=== PATIENT | female | born 1990 | race Caucasian/White ===

== ENCOUNTER 2017-05-08 12:09 | Emergency (ER) | payer SELFPAY ==
[~2017-05-08] VITALS: Ht 162.6 cm; Wt 119.5 kg
[~2017-05-08 12:09] MED LIST: IBUP-1542 PO
[2017-05-08 12:16] VITALS: Ht 162.6 cm; Wt 119.5 kg
[2017-05-08] MEDS ORDERED: ONDANSETRON (ODT) 4 MG TAB ODT STA (13:27)
--- NOTE | 2017-05-08 13:44 | ERD ---
ER Documentation Chief Complaint Date/Time DATE: 05/08/17 TIME: 13:40 Chief Complaint Pt with Dizziness and nausea X 1 hours prior to arrival. HPI 27-year-old female otherwise healthy presents with dizziness, lightheadedness with nausea started about an hour prior to arrival. She states that occurred after she looked down to pick something up, and it occurs also when she looks down towards the ground as well. She describes as a lightheaded sensation, slight vertiginous sensation as well with a slight headache. She reports nausea but no vomiting. No blurry vision, paresthesias. ROS All systems reviewed and are negative except as per history of present illness. Medications Home Meds Active Scripts Ondansetron (Ondansetron Odt) 4 Mg Tab.rapdis, 4 MG PO Q6H Y for NAUSEA AND/OR VOMITING, #10 TAB Prov:DEWEY SMALLS PA-C 05/08/17 Ibuprofen* (Motrin*) 600 Mg Tab, 600 MG PO Q8 for 10 Days, #30 TAB 0 Refills Prov:TRACY AMADO PA-C 05/21/16 Allergies Allergies: Coded Allergies: No Known Allergy (Unverified , 05/21/16) PMhx/Soc Medical and Surgical Hx: pt denies Medical Hx, pt denies Surgical Hx Hx Alcohol Use: Yes Hx Substance Use: No Hx Tobacco Use: No Physical Exam Vitals Vital Signs Date Time Temp Pulse Resp B/P Pulse Ox O2 Delivery O2 Flow Rate FiO2 05/08/17 12:39 145/89 05/08/17 12:16 98.1 77 20 190/115 96 Physical Exam General: Well-developed, well-nourished. The patient appears in no acute distress. HEENT: Head is normocephalic, atraumatic. No scleral icterus. Pupils are equal , round, and reactive. Oral mucous membranes are moist. No pharyngeal erythema. Neck: Supple. Nontender. Lungs: Clear to auscultation. Normal air movement. Heart: Regular rate and rhythm. S1 and S2 are normal. No murmurs, gallops, or rubs. Abdomen: Soft, nontender, nondistended. Bowel sounds are normoactive. Extremities: No clubbing or cyanosis. Normal pulses. Moving extremities x 4. No weakness. Neuro: M/S: Alert and oriented Face: EOMI, CN II-XII grossly intact Motor: Normal strength throughout Sensation: Normal sensation throughout Speech: Normal Cerebel: Normal coordination Normal gait Normal finger to nose DTR: 2+ and symmetric upper/lower extremities Skin: Normal turgor. No rash or lesions. Results 24 hrs Laboratory Tests Test 05/08/17 13:50 05/08/17 14:35 Bedside Glucose 94mg/dL Urine Color COLORLESS Urine Clarity CLEAR Urine pH 6.0 Urine Specific [place] 1.003 Urine Ketones NEGATIVEmg/dL Urine Nitrite NEGATIVEmg/dL Urine Bilirubin NEGATIVEmg/dL Urine Urobilinogen NEGATIVEmg/dL Urine Leukocyte Esterase TRACELeu/ul Urine Microscopic RBC 1/HPF Urine Microscopic WBC 1/HPF Urine Bacteria FEW/HPF Urine Hemoglobin NEGATIVEmg/dL Urine Glucose NEGATIVEmg/dL Urine Total Protein NEGATIVEmg/dl Urine Test NEGATIVE Current Medications Medications (Trade) Dose Ordered Sig/Julian Route PRN Reason Start Time Stop Time Status Last Admin Dose Admin Ondansetron HCl (Zofran Odt) 4 mg ONCE STAT ODT 05/08/17 13:27 05/08/17 13:28 DC 05/08/17 13:48 Procedures/MDM 12-lead EKG(interpreted by supervising physician): Dr. Camacho Rate/Rhythm: Normal Sinus Rhythm, rate of 71 QRS, ST, T-waves: No changes consistent w/ acute ischemia, no intervals, no dysrhythmias, no ectopy Impression: No evidence of ischemia or arrhythmia Medical decision makin-year-old female presents with acute onset of dizziness, she describes as vertiginous with lightheadedness and appears to be dependent on her position. She states that occurred is reproducible when she looks down. Headache does not appear to be severe, she states that she feels more stressed about her symptoms and describes the headache is more of a tension headache. I did offer see risks of radiation likely would outweigh the benefits given her normal neurologic examination and presentation. Patient has a normal EKG, glucose was obtained and she was also given Zofran for her nausea symptoms. Urine analysis, Negative for infection, negative for .I doubt intracranial hemorrhage, mass-effect, dissection, acute coronary syndrome , pulmonary embolus, dehydration, anemia. Patient at this time received Zofran , feeling much better. She had elevated blood pressure reading that was initially noted at triage which was immediately retaken and had improved. To follow-up with her primary care doctor for reevaluation follow-up next week. Patient's blood pressure was elevated (>120/80) but appears stable without evidence of hypertension emergency or urgency. The patient was counseled about the risks of hypertension and urged to pursue outpatient monitoring and therapy within a week with their primary care physician. Departure Diagnosis: Primary Impression: Dizziness Condition: Good DEWEY SMALLS PA-C May 08, 2017 13:44
[2017-05-08 14:51] LABS: ADD UMIC YES; UR ASCORBIC ACID NEGATIVE (NEGATIVE); UR BACTERIA FEW /HPF (NONE SEEN); UR BILIRUBIN (Dip) NEGATIVE (NEGATIVE); UR BLOOD (Dip) NEGATIVE (NEGATIVE); UR CLARITY CLEAR (CLEAR); UR COLOR COLORLESS (YELLOW); UR GLUCOSE (Dip) NEGATIVE (NEGATIVE); UR KETONES (Dip) NEGATIVE (NEGATIVE); UR LEUKOCYTE ESTERASE (Dip) TRACE Leu/ul (NEGATIVE); UR NITRITE (Dip) NEGATIVE (NEGATIVE); UR RBC 1 /HPF (0-5); UR SPECIFIC GRAVITY (Dip) 1.003 (1.003-1.030); UR TOTAL PROTEIN (Dip) NEGATIVE (NEGATIVE); UR UROBILINOGEN (Dip) NEGATIVE (NEGATIVE)
[2017-05-08] MEDS ORDERED: ONDA4TAB14 PO (15:06)
[2017-05-08 15:41] VITALS: BP 143/88; PULSE 68; RESP 18; TEMP 98.1
== END 2017-05-08 15:42 | disposition home or self-care (01) ==
LOC: FTE 12:09
DX: R42 Dizziness and giddiness (principal); R11.0 Nausea
CPT/HCPCS: 81001; 82962; 84703; 93005; 99284

== ENCOUNTER 2018-07-29 23:13 | Emergency (ER) | END 2018-07-30 01:07 | disposition home or self-care (01) ==

== ENCOUNTER 2018-09-07 01:49 | Emergency (ER) | payer OTHER ==
[~2018-09-07] VITALS: Wt 117.1 kg
[~2018-09-07 01:49] MED LIST changes: +ONDA4TAB14 PO
[2018-09-07] MEDS ORDERED: HYDR-3029 PO (04:15)
[2018-09-07] MEDS ORDERED: NAPR-985 PO (04:15)
[2018-09-07 04:27] VITALS: BP 130/83; PULSE 79; RESP 18
--- NOTE | 2018-09-07 04:28 | ERD ---
ER Documentation Chief Complaint Chief Complaint CP X'S 1 HR HPI 28-year-old female presenting with chest pain times 1 hour. Patient states that at night her chest causes her pressure and pain and this evening she felt dizzy with a hot spell came over her. She felt short of breath but then drink water and her symptoms improved. Since waiting in the emergency room and in my evaluation patient states her symptoms have improved. Patient has a history of anxiety and does feel that she is under stress. She has a history of hype rtension and is not currently taking medications. She is planning to see her primary doctor in the next few weeks. NKDA. Surgical history is breast cyst biopsy. Social history denies ROS All systems reviewed and are negative except as per history of present illness. Medications Home Meds Active Scripts Hydroxyzine Hcl* (Hydroxyzine Hcl*) 10 Mg Tablet, 10 MG PO Q6H PRN for ANXIETY, #30 TAB Prov:MEERA CHENG PA-C 09/07/18 Naproxen* (Naprosyn*) 500 Mg Tablet, 500 MG PO BID PRN for PAIN AND/OR INFLAMMATION, #30 TAB Prov:MEERA CHENG PA-C 09/07/18 Ibuprofen* (Motrin*) 600 Mg Tab, 600 MG PO Q6H PRN for PAIN AND OR ELEVATED TEMP, #30 TAB Prov:LISANDRO PIÑA MD 07/30/18 Ondansetron (Ondansetron Odt) 4 Mg Tab.rapdis, 4 MG PO Q6H PRN for NAUSEA AND/OR VOMITING, #10 TAB Prov:DEWEY SMALLS PA-C 05/08/17 Ibuprofen* (Motrin*) 600 Mg Tab, 600 MG PO Q8 for 10 Days, #30 TAB 0 Refills Prov:TRACY AMADO PA-C 05/21/16 Allergies Allergies: Coded Allergies: No Known Allergy (Unverified , 07/29/18) PMhx/Soc Medical and Surgical Hx: pt denies Medical Hx History of Surgery: Yes (2 csyts removed from breast) Anesthesia Reaction: No Hx Alcohol Use: No Hx Substance Use: No Hx Tobacco Use: No Smoking Status: Never smoker FmHx Family History: No diabetes, No coronary disease, No other Physical Exam Vitals Vital Signs Date Temp Pulse Resp B/P (MAP) Pulse Ox O2 O2 Flow FiO2 Time Delivery Rate 09/07/18 97.5 104 20 183/102 100 01:58 (129) Physical Exam GENERAL: The patient is well-appearing, well-nourished, in no acute distress HEENT: Atraumatic. Conjunctivae are pink. Pupils equal, round, and reactive to light. There is no scleral icterus. Tympanic membranes clear bilaterally. Oropharynx clear. No nystagmus or photophobia. NECK: C-spine is soft and supple. There is no meningismus. There is no cervical lymphadenopathy. CHEST: Clear to auscultation bilaterally. There are no rales, wheezes or rhonchi. HEART: Regular rate and rhythm. No murmurs, clicks, rubs or gallops. No S3 or S4. Result Diagram: 09/07/1831709/07/18317 Results 24 hrs Laboratory Tests Test 09/07/18 03:18 09/07/18 03:29 White Blood Count 10.1 10^3/ul Red Blood Count 4.71 10^6/ul Hemoglobin 12.2 g/dl Hematocrit 38.0 % Mean Corpuscular Volume 80.7 fl Mean Corpuscular Hemoglobin 25.9 pg Mean Corpuscular Hemoglobin Concent 32.1 g/dl Red Cell Distribution Width 13.6 % Platelet Count 363 10^3/UL Mean Platelet Volume 10.5 fl Immature Granulocytes % 0.400 % Neutrophils % 67.2 % Lymphocytes % 25.5 % Monocytes % 5.4 % Eosinophils % 1.0 % Basophils % 0.5 % Nucleated Red Blood Cells % 0.0 /100WBC Immature Granulocytes # 0.040 10^3/ul Neutrophils # 6.8 10^3/ul Lymphocytes # 2.6 10^3/ul Monocytes # 0.5 10^3/ul Eosinophils # 0.1 10^3/ul Basophils # 0.1 10^3/ul Nucleated Red Blood Cells # 0.0 10^3/ul Urine Color STRAW Urine Clarity CLEAR Urine pH 6.0 Urine Specific [place] 1.009 Urine Ketones NEGATIVE mg/dL Urine Nitrite NEGATIVE mg/dL Urine Bilirubin NEGATIVE mg/dL Urine Urobilinogen NEGATIVE mg/dL Urine Leukocyte Esterase NEGATIVE Sean/ul Urine Microscopic RBC 0 /HPF Urine Microscopic WBC 1 /HPF Urine Bacteria FEW /HPF Urine Hemoglobin 1+ mg/dL Urine Glucose NEGATIVE mg/dL Urine Total Protein NEGATIVE mg/dl Sodium Level 142 mmol/L Potassium Level 4.1 mmol/L Chloride Level 103 mmol/L Carbon Dioxide Level 27 mmol/L Anion Gap 12 Blood Urea Nitrogen 15 mg/dl Creatinine 0.70 mg/dl Est Glomerular Filtrat Rate mL/min > 60 mL/min Glucose Level 104 mg/dl Calcium Level 9.2 mg/dl Total Bilirubin 0.0 mg/dl Direct Bilirubin 0.00 mg/dl Indirect Bilirubin 0.0 mg/dl Aspartate Amino Transf (AST/SGOT) 27 IU/L Alanine Aminotransferase (ALT/SGPT) 31 IU/L Alkaline Phosphatase 101 IU/L Troponin I < 0.012 ng/ml Total Protein 8.4 g/dl Albumin 4.4 g/dl Globulin 4.00 g/dl Albumin/Globulin Ratio 1.10 POC Beta HCG, Qualitative NEGATIVE Procedures/MDM DIAGNOSTIC IMAGING REPORT Patient: JONELLE PATRICIO : 1990 Age: 28 Sex: F MR #: [id number] DOS: 09/07/18 0312 Ordering MD: MI CHENG PA-C Location: [facility] Room/Bed: PROCEDURE: XR Chest. CLINICAL INDICATION: Chest pain TECHNIQUE: Portable single view of the chest COMPARISON: DR BUTT 07/29/2018 FINDINGS: The lungs are stable appearance without new focal infiltrate. No CHF including n o pleural effusion has developed. The heart size and mediastinal contours are stable within normal limits. Osseous structures are intact. IMPRESSION: No significant change. No new acute process seen within the chest. EKG: Rate/Rhythm: 105 bpm. Sinus tachycardia. No STEMI. QRS, ST, T-waves: No changes consistent w/ acute ischemia Impression: No evidence of ischemia or arrhythmia MDM: 28-year-old female presenting with chest wall pain. I have low suspicion for cardiac emergency. Patient's EKG and blood work are stable. I have considered pulmonary abnormalities including but not limited to pneumothorax versus PE. Patient does not have pleuritic chest pain and no dyspnea on ex ertion. Patient is discharged with supportive medications and recommended to follow-up with her primary care. Patient was told symptoms change or worsen to immediately return to the ER. All questions answered at discharge Departure Diagnosis: Primary Impression: Chest pain Condition: Stable Patient Instructions: Chest Pain, Uncertain Cause Referrals: [facility] YOU HAVE RECEIVED A MEDICAL SCREENING EXAM AND THE RESULTS INDICATE THAT YOU DO NOT HAVE A CONDITION THAT REQUIRES URGENT TREATMENT IN THE EMERGENCY DEPARTMENT. FURTHER EVALUATION AND TREATMENT OF YOUR CONDITION CAN WAIT UNTIL YOU ARE SEEN IN YOUR DOCTORS OFFICE WITHIN THE NEXT 1-2 DAYS. IT IS YOUR RESPONSIBILITY TO MAKE AN APPOINTMENT FOR FOLOW-UP CARE. IF YOU HAVE A PRIMARY DOCTOR --you should call your primary doctor and schedule an appointment IF YOU DO NOT HAVE A PRIMARY DOCTOR YOU CAN CALL OUR PHYSICIAN REFERRAL HOTLINE AT IF YOU CAN NOT AFFORD TO SEE A PHYSICIAN YOU CAN CHOSE FROM THE FOLLOWING [facility] [address] [facility]. [facility] [address] [facility] [address] [facility] [facility] [address] [facility] [facility] [address] [facility]. [facility] [address] Additional Instructions: FOLLOW UP WITH YOUR PRIMARY CARE PHYSICIAN TOMORROW.Return to this facility if you are not improving as expected. MEERA CHENG PA-C Sep 07, 2018 04:28
== END 2018-09-07 04:29 | disposition home or self-care (01) ==
LOC: FTE 01:49
DX: R07.9 Chest pain, unspecified (principal)
CPT/HCPCS: 36415; 71045; 80053; 81001; 81025; 84484; 85025; 93005

== ENCOUNTER 2018-12-11 10:01 | Emergency (ER) | payer OTHER ==
[~2018-12-11] VITALS: Ht 162.6 cm; Wt 115.3 kg
[~2018-12-11 10:01] MED LIST changes: +HYDR-3029 PO; +NAPR-985 PO
[2018-12-11 10:05] VITALS: BP 147/88; PULSE 107; RESP 20; Ht 162.6 cm; Wt 115.3 kg
[2018-12-11] MEDS ORDERED: AMOX500C2 PO (10:49)
[2018-12-11] MEDS ORDERED: IBUP-1542 PO (10:49)
--- NOTE | 2018-12-11 11:18 | ERD ---
ER Documentation Chief Complaint Chief Complaint Pt with ST and congestion since yesterday, difficulty swallowing HPI 28-year-old female patient with no significant past medical history presents ED complaining of sore throat, congestion started yesterday. She reports that it is painful for her to swallow however she still able to swallow liquids and solids without any difficulty. Denies any chest pain, shortness of breath, nausea, vomiting, diarrhea, neck stiffness. Patient is eating appropriately, tolerating oral intake, has normal bowel movements and good urine output. Denies any wheezing, abdominal pain, chest pain. ROS All systems reviewed and are negative except as per history of present illness. Medications Home Meds Active Scripts Amoxicillin* (Amoxicillin*) 500 Mg Cap, 500 MG PO BID for 10 Days, CAP Prov:RIC OLVERA PA-C 12/11/18 Ibuprofen* (Motrin*) 600 Mg Tab, 600 MG PO Q6, #30 TAB Prov:RIC OLVERA PA-C 12/11/18 Hydroxyzine Hcl* (Hydroxyzine Hcl*) 10 Mg Tablet, 10 MG PO Q6H PRN for ANXIETY, #30 TAB Prov:MEERA CHENG PA-C 09/07/18 Naproxen* (Naprosyn*) 500 Mg Tablet, 500 MG PO BID PRN for PAIN AND/OR INFLAMMATION, #30 TAB Prov:MEERA CHENG PA-C 09/07/18 Ibuprofen* (Motrin*) 600 Mg Tab, 600 MG PO Q6H PRN for PAIN AND OR ELEVATED TEMP, #30 TAB Prov:LISANDRO PIÑA MD 07/30/18 Ondansetron (Ondansetron Odt) 4 Mg Tab.rapdis, 4 MG PO Q6H PRN for NAUSEA AND/OR VOMITING, #10 TAB Prov:DEWEY SMALLS PA-C 05/08/17 Ibuprofen* (Motrin*) 600 Mg Tab, 600 MG PO Q8 for 10 Days, #30 TAB 0 Refills Prov:TRACY AMADO PA-C 05/21/16 Allergies Allergies: Coded Allergies: No Known Allergy (Unverified , 07/29/18) PMhx/Soc History of Surgery: Yes (2 csyts removed from breast) Anesthesia Reaction: No Hx Alcohol Use: No Hx Substance Use: No Hx Tobacco Use: No Smoking Status: Never smoker FmHx Family History: No diabetes, No coronary disease Physical Exam Vitals Vital Signs Date Temp Pulse Resp B/P (MAP) Pulse Ox O2 O2 Flow FiO2 Time Delivery Rate 12/11/18 98.6 107 20 147/88 98 10:05 (107) Physical Exam Const: [id number]-[id number], well-nourished. In no acute distress. Head: Atraumatic, normocephalic Eyes: Normal Conjunctiva without injection. No purulent discharge. PERRL. EOMI ENT: Normal external ear. Ear canal without erythema. Tympanic membrane pearly gallegos without effusion or bulging. Nasal canal clear with normal turbinates. Erythematous bilateral tonsils with exudates noted. Erythematous pharynx. Uvula midline. No drooling. No trismus. Neck: Full range of motion. No meningismus. No cervical lymphadenopathy. Resp: Clear to auscultation bilaterally. No wheezing, rhonchi, rales, or crackles. No accessory muscle use. No retractions. Cardio: Regular rate and rhythm. No murmurs, rubs or gallops. Abd: Soft, non tender, non distended. Normal bowel sounds. No palpable masses. No rebound tenderness. No guarding. Skin: No petechiae or rashes Back: No midline tenderness. No CVA tenderness. Ext: No cyanosis, or edema. Neur: Awake and alert. Psych: Normal Mood and Affect Procedures/MDM 28-year-old female patient with no significant past medical history presents to ED complaining of sore throat that started yesterday. Patient is afebrile and nontoxic appearing. Patient likely has acute bacterial tonsillitis. Patient is appropriate for outpatient antibiotics. Patient's physical exam include lungs which were clear to auscultation and a normal pulse oximetry. Bilateral ears pearly carpio. No tenderness to palpation of tragus or mastoid. Low suspicion for mastoiditis, ot itis externa, otitis media. Patient is speaking in full sentences. There is a low suspicion for pneumonia, sinusitis, peritonsillar abscess, hands foot mouth disease, scarlet fever, Kawasaki disease, Lul's angina, retropharyngeal abscess, meningitis, sepsis, acute abdomen or other emergent conditions. Diagnosis: Sore Throat Discharge medications: Ibuprofen, Amoxicillin Follow up with primary care physician in 1-2 days. Instructed patient to stop antibiotics if developed a rash. Instructed patient to return to the ED sooner for any worsening symptoms. Patient's questions were answered. Patient is hemodynamically stable. Patient understood and agreed with discharge plan. Patient discharged stable. Disclaimer: Inadvertent spelling and grammatical errors are likely due to EHR/dictation software use and do not reflect on the overall quality of patient care. Also, please note that the electronic time recorded on this note does not necessarily reflect the actual time of the patient encounter. Departure Diagnosis: Primary Impression: Sore throat Condition: Stable Patient Instructions: Self-Care for Sore Throats, Pharyngitis, Strep (Presumed) Referrals: [facility] YOU HAVE RECEIVED A MEDICAL SCREENING EXAM AND THE RESULTS INDICATE THAT YOU DO NOT HAVE A CONDITION THAT REQUIRES URGENT TREATMENT IN THE EMERGENCY DEPARTMENT. FURTHER EVALUATION AND TREATMENT OF YOUR CONDITION CAN WAIT UNTIL YOU ARE SEEN IN YOUR DOCTORS OFFICE WITHIN THE NEXT 1-2 DAYS. IT IS YOUR RESPONSIBILITY TO MAKE AN APPOINTMENT FOR FOLOW-UP CARE. IF YOU HAVE A PRIMARY DOCTOR --you should call your primary doctor and schedule an appointment IF YOU DO NOT HAVE A PRIMARY DOCTOR YOU CAN CALL OUR PHYSICIAN REFERRAL HOTLINE AT IF YOU CAN NOT AFFORD TO SEE A PHYSICIAN YOU CAN CHOSE FROM THE FOLLOWING [facility] [address] [facility]. [facility] [address] [facility]. [facility] [address] [facility] [facility] [address] [facility]. [facility] [address] [facility]. [facility]. [address] [facility]. [facility] YOU HAVE RECEIVED A MEDICAL SCREENING EXAM AND THE RESULTS INDICATE THAT YOU DO NOT HAVE A CONDITION THAT REQUIRES URGENT TREATMENT IN THE EMERGENCY DEPARTMENT. FURTHER EVALUATION AND TREATMENT OF YOUR CONDITION CAN WAIT UNTIL YOU ARE SEEN IN YOUR DOCTORS OFFICE WITHIN THE NEXT 1-2 DAYS. IT IS YOUR RESPONSIBILITY TO MAKE AN APPOINTMENT FOR FOLOW-UP CARE. IF YOU HAVE A PRIMARY DOCTOR --you should call your primary doctor and schedule and appointment IF YOU DO NOT HAVE A PRIMARY DOCTOR YOU CAN CALL OUR PHYSICIAN REFERRAL HOTLINE AT . IF YOU CAN NOT AFFORD TO SEE A PHYSICIAN YOU CAN CHOSE FROM THE FOLLOWING [facility] INSTITUTIONS: [facility] [address] [place] [address] [facility] [address] [place] [address] [facility] [address] [place] [address] [facility]SPECIALTIES Additional Instructions: Call your primary care doctor TOMORROW for an appointment during the next 2-3 days.See the doctor sooner or return here if your condition worsens before your appointment time. RIC OLVERA PA-C Dec 11, 2018 11:18
== END 2018-12-11 11:29 | disposition home or self-care (01) ==
LOC: FTE 10:01
DX: J02.9 Acute pharyngitis, unspecified (principal)
CPT/HCPCS: 99283